=== PATIENT | female | born 1955 | race Two or more races ===

== ENCOUNTER 2023-12-10 02:28 | Observation (INO) | payer MEDICARE, BC ==
[~2023-12-10] VITALS: Ht 160 cm; Wt 77.3 kg
[2023-12-10] VITALS (14 sets, daily range): BP systolic 110–143; BP diastolic 50–70; PULSE 74–107; RESP 18–20; TEMP 97; O2SAT 97
[2023-12-10 03:15] LABS: BASOPHILS # (AUTO) 0.1 X10'3 (0-0.2); BASOPHILS % (AUTO) 0.6 % (0-1); EOSINOPHILS # (AUTO) 0.2 X10'3 (0-0.9); EOSINOPHILS % (AUTO) 1.6 % (0-6); HEMATOCRIT 42.3 % (35.0-45.0); LYMPHOCYTES # (AUTO) 2.8 X10'3 (1.1-4.8); LYMPHOCYTES % (AUTO) 29.8 % (21-51); MEAN CORPUSCULAR HEMOGLOBIN 30.7 PG (27.0-31.0); MEAN CORPUSCULAR VOLUME 92.9 FL (78-98); MONOCYTES # (AUTO) 0.5 X10'3 (0-0.9); PLATELET COUNT 200 X10'3 (140-440); RED BLOOD COUNT 4.56 X10'6 (4.20-5.60); RED CELL DISTRIBUTION WIDTH 13.9 % (11.5-14.5); WHITE BLOOD COUNT 9.6 X10'3 (4.5-11.0)
[2023-12-10 03:34] LABS: ALBUMIN 3.6 G/DL (3.4-5.0); ANION GAP 6 (8-16); BLOOD UREA NITROGEN 21 MG/DL (7-18); BUN/CREATININE RATIO 18.9 (10.0-20.0); CALCIUM 9.4 MG/DL (8.5-10.1); CHLORIDE 101 MMOL/L (99-107); CREATININE 1.11 MG/DL (0.40-0.90); GLUCOSE 125 MG/DL (70-104); POTASSIUM 3.7 MMOL/L (3.5-5.1); PRO BRAIN NATRIURETIC PEPTIDE < 30 PG/ML (0-125); SODIUM 135 MMOL/L (135-145); TOTAL CARBON DIOXIDE 27.8 MMOL/L (24-32); eCRCL 41 ML/MIN; eGFR 49 ML/MIN
[2023-12-10] MEDS: aspirin 325mg tablet PO ONE (03:56)
[2023-12-10] MEDS ORDERED: nitroGLYCERIN 0.4mg SUBLingual tab SL PRN (06:30)
[2023-12-10] MEDS ORDERED: magnesium sulf-water 2g/50mL 50 ML IV PRN (06:30)
[2023-12-10] MEDS ORDERED: magnesium Cl slow-release 64mg tablet PO PRN (06:30)
[2023-12-10] MEDS ORDERED: magnesium sulf-water 4G/100mL 100 ML IV PRN (06:30)
[2023-12-10] MEDS ORDERED: potassium Cl 40MEQ/1/2NS 520ml 520 ML IV PRN (06:30)
[2023-12-10] MEDS ORDERED: morphine 2 MG/ML inj. syringe IV PRN (06:30)
[2023-12-10] MEDS ORDERED: metoprolol tartrate 1mg/ml inj IV PRN (06:30)
[2023-12-10] MEDS ORDERED: ondansetron/PF 4mg/2ml inj IV PRN (06:30)
[2023-12-10] MEDS ORDERED: potassium Cl 20 mEq SR tablet PO PRN ×2 (06:30)
[2023-12-10] MEDS ORDERED: mag hydrox/Alum hydrox/simeth 30ml oral suspension PO PRN (06:30)
[2023-12-10] MEDS ORDERED: acetaminophen 325mg tablet PO PRN (06:30)
[2023-12-10] MEDS ORDERED: magnesium hydroxide 30ml (MOM) UD suspension PO PRN (06:30)
[2023-12-10] MEDS ORDERED: aminophylline 250mg/10ml inj. IV PRN (06:30)
[2023-12-10] MEDS ORDERED: ROW500R RC (06:52)
[2023-12-10] MEDS ORDERED: POLY119P2 PO (06:52)
[2023-12-10] MEDS ORDERED: BUDE10.2 IH (06:52)
[2023-12-10] MEDS ORDERED: HYDR12.55 PO (06:52)
[2023-12-10] MEDS ORDERED: EZET10TA48 PO (06:52)
[2023-12-10] MEDS ORDERED: FAMO20TA8 PO (06:52)
[2023-12-10] MEDS ORDERED: MULT-1085 PO (06:52)
[2023-12-10] MEDS ORDERED: OLME40TA18 PO (06:52)
[2023-12-10] MEDS ORDERED: TIRZ2.5P SQ (06:52)
[2023-12-10 07:32] LABS: CHOL/HDL RATIO 3.5 (0.00-4.99); CHOLESTEROL 181 MG/DL (0-200); HDL CHOLESTEROL 51 MG/DL (35-60); LDL CHOLESTEROL 94 MG/DL (50-100); THYROID STIMULATING HORMONE 1.35 ulU/ml (0.34-4.50); TRIGLYCERIDES 187 MG/DL (20-135)
[2023-12-10] MEDS: heparin, porcine 5000 units/ml vial SQ SCH (07:56)
[2023-12-10] MEDS: K and/or MAG REPLACEMENT MC SCH (08:00)
[2023-12-10] MEDS: normal saline 1000ml 1,000 ML IV SCH (08:11)
[2023-12-10] MEDS: regadenoson 0.4mg/5ml syringe IV PRN (09:28)
[2023-12-10 10:17] LABS: HEMOGLOBIN A1C 6.4 % (4.5-6.2)
[2023-12-10] MEDS ORDERED: NITR0.4T51 SL (14:37)
== END 2023-12-10 15:45 | disposition home or self-care (01) ==
LOC: ER 02:29 → ED HOLD 06:33 → PCU 3S 10:55
PROVIDERS: ADMIT Internal Medicine Sleep Medicine; ATTEND Family Medicine
DX: R07.9 Chest pain, unspecified (principal); K51.90 Ulcerative colitis, unspecified, without complications; I10 Essential (primary) hypertension; E78.5 Hyperlipidemia, unspecified; J43.9 Emphysema, unspecified; E11.9 Type 2 diabetes mellitus without complications; G47.33 Obstructive sleep apnea (adult) (pediatric); F17.210 Nicotine dependence, cigarettes, uncomplicated; F12.90 Cannabis use, unspecified, uncomplicated; Z91.040 Latex allergy status; Z79.899 Other long term (current) drug therapy
CPT/HCPCS: 36415; 71045; 78452; 80048; 80061; 83036; 83880; 84443; 84484; 85025; 87081; 93005; 93017; 93306; 96360; 96361; 96372; 99285; A9500; G0378; J1644; J2785; J7030

== ENCOUNTER 2023-12-16 09:56 | Outpatient (CLI) | payer MEDICARE, BC ==
[~2023-12-16 09:56] MED LIST: BUDE10.2 IH; EZET10TA48 PO; FAMO20TA8 PO; HYDR12.55 PO; MULT-1085 PO; NITR0.4T51 SL; OLME40TA18 PO; POLY119P2 PO; ROW500R RC; TIRZ2.5P SQ
== END 2023-12-16 23:59 | disposition home or self-care (01) ==
LOC: RAD 09:56
PROVIDERS: ATTEND Surgery
DX: K21.9 Gastro-esophageal reflux disease without esophagitis (principal)
CPT/HCPCS: 74220

== ENCOUNTER 2024-04-13 05:25 | Inpatient (IN) | payer MEDICARE, BC ==
[2024-04-10 14:24] LABS: BASOPHILS # (AUTO) 0.1 X10'3 (0-0.2); BASOPHILS % (AUTO) 0.9 % (0-1); EOSINOPHILS # (AUTO) 0.3 X10'3 (0-0.9); EOSINOPHILS % (AUTO) 2.8 % (0-6); HEMATOCRIT 40.9 % (35.0-45.0); HEMOGLOBIN 13.6 g/dl (12.0-16.0); LYMPHOCYTES # (AUTO) 2.3 X10'3 (1.1-4.8); LYMPHOCYTES % (AUTO) 25.4 % (21-51); MEAN CORPUSCULAR HEMOGLOBIN 30.8 PG (27.0-31.0); MEAN CORPUSCULAR HGB CONC 33.3 g/dL (33.0-36.5); MEAN CORPUSCULAR VOLUME 92.5 FL (78-98); MEAN PLATELET VOLUME 7.3 FL (7.4-10.4); MONOCYTES # (AUTO) 0.6 X10'3 (0-0.9); MONOCYTES % (AUTO) 6.5 % (2-12); NEUTROPHILS # (AUTO) 5.9 X10'3 (1.8-7.7); NEUTROPHILS % (AUTO) 64.4 % (42-75); PLATELET COUNT 218 X10'3 (140-440); RED BLOOD COUNT 4.42 X10'6 (4.20-5.60); RED CELL DISTRIBUTION WIDTH 13.2 % (11.5-14.5); WHITE BLOOD COUNT 9.2 X10'3 (4.5-11.0)
[2024-04-10 15:18] LABS: ALANINE AMINOTRANSFERASE 31 U/L (12-78); ALBUMIN 3.4 G/DL (3.4-5.0); ALKALINE PHOSPHATASE 107 IU/L (46-116); ANION GAP 8 (8-16); ASPARTATE AMINO TRANSFERASE 18 U/L (10-37); BILIRUBIN,TOTAL 0.4 MG/DL (0.1-1.0); BLOOD UREA NITROGEN 16 MG/DL (7-18); BUN/CREATININE RATIO 16.3 (10.0-20.0); CALCIUM 8.6 MG/DL (8.5-10.1); CHLORIDE 105 MMOL/L (99-107); CREATININE 0.98 MG/DL (0.40-0.90); GLUCOSE 135 MG/DL (70-104); POTASSIUM 3.9 MMOL/L (3.5-5.1); SODIUM 141 MMOL/L (135-145); TOTAL CARBON DIOXIDE 27.9 MMOL/L (24-32); TOTAL PROTEIN 6.8 G/DL (6.4-8.2); eGFR 57 ML/MIN
[~2024-04-13] VITALS: Ht 160 cm; Wt 78.0 kg
[2024-04-13] VITALS (24 sets, daily range): BP systolic 113–151; BP diastolic 55–88; PULSE 70–96; RESP 13–25; TEMP 97.2–98.7; O2SAT 90–99
[~2024-04-13 05:25] MED LIST changes: +GLUCOSAMINE; +LANS30CA56 PO; +MAGNESIUM; -NITR0.4T51 SL; +PREVCR VG
[2024-04-13] MEDS: ringers solution, lacted 1,000 ML IV SCH ×2 (05:30→09:15)
[2024-04-13] MEDS: famotidine 20mg tablet PO ONE (05:30)
[2024-04-13] MEDS: ceFAZolin 2gm in dextrose, iso 50 ML IV ONE (05:49)
[2024-04-13] MEDS ORDERED: LIDOcaine 1% 30ml preserv. free vial ONE (06:47)
[2024-04-13] MEDS ORDERED: BUPIVAcaine 2.5mg/ml inj 50ml vial (contains preservative) ONE (06:47)
[2024-04-13] MEDS ORDERED: sevoflurane 250ml liquid IH ONE (07:22)
[2024-04-13] MEDS ORDERED: fentaNYL /PF 50mcg/ml 5ml ampule ONE (07:33)
[2024-04-13] MEDS ORDERED: midazolam 1 mg/ML 2ml injection ONE (07:33)
[2024-04-13] MEDS ORDERED: LIDOcaine 2% (20mg/ml) 5ml vial ONE (07:46)
[2024-04-13] MEDS ORDERED: propofol inj 20 ML IV ONE (07:46)
[2024-04-13] MEDS ORDERED: rocuronium 10mg/ml inj IV ONE (07:47)
[2024-04-13] MEDS: BUPIVAcaine 2.5mg/ml inj 50ml vial (contains preservative) SQ ONE (08:04)
[2024-04-13] MEDS ORDERED: labetalol 20mg/4ml (5mg/ml) syringe IV PRN (09:15)
[2024-04-13] MEDS ORDERED: proCHLORperazine 10 MG/2 ml inj IV PRN (09:15)
[2024-04-13] MEDS ORDERED: morphine 4 MG/ML inj SYRINge IV PRN (09:15)
[2024-04-13] MEDS ORDERED: enalaprilat dihydrate 2.5mg/2ml vial IV PRN (09:15)
[2024-04-13] MEDS ORDERED: ondansetron/PF 4mg/2ml inj IV PRN (09:15)
[2024-04-13] MEDS ORDERED: meperidine/PF 25mg/ml syringe IV PRN ×3 (09:15)
[2024-04-13] MEDS ORDERED: morphine 2 MG/ML inj. syringe IV PRN (09:15)
[2024-04-13] MEDS ORDERED: meperidine/PF 25mg/ml syringe ONE (09:59)
[2024-04-13] MEDS ORDERED: acetaminophen 1,000mg/100ml IV 100 ML IV ONE (10:02)
[2024-04-13] MEDS ORDERED: neostigmine methylsulfate 1 MG/ML 10ml vial ONE (10:09)
[2024-04-13] MEDS ORDERED: glycopyrrolate 0.2mg/ml inj ONE (10:09)
[2024-04-13] MEDS ORDERED: sugammadex 200mg/2ml injection IV ONE (10:25)
[2024-04-13] MEDS: PCA WASTE DOCUMENTATION 1 MG ML MC SCH (10:34)
[2024-04-13] MEDS: potassium CL 20mEq in D5-1/2NS 1,000 ML IV SCH (10:35)
[2024-04-13] MEDS: HYDROmorph/NS 0.2 mg/ml PCA 100 ML IV SCH (11:00)
[2024-04-13] MEDS: heparin, porcine 5000 units/ml vial SQ SCH (19:36)
[2024-04-13] MEDS: ondansetron/PF 4mg/2ml inj IV PRN (19:54)
[2024-04-14] VITALS (11 sets, daily range): BP systolic 107–131; BP diastolic 42–60; PULSE 60–83; RESP 15–18; TEMP 97.3–98.6; O2SAT 92–98
[2024-04-14] MEDS: normal saline 1000ml 1,000 ML IV SCH (02:05)
[2024-04-14] MEDS: proCHLORperazine 10 MG/2 ml inj IV PRN (09:57)
[2024-04-14] MEDS: oxyCODONE/APAP 5-325mg tablet PO PRN (12:07)
[2024-04-14] MEDS: albuterol 2.5 MG/3 ML nebule NEB SCH (15:44)
[2024-04-15 07:27] VITALS: BP 123/60; PULSE 79; RESP 18; TEMP 98.2; O2SAT 92
[2024-04-15] MEDS ORDERED: PER5325T PO (08:16)
[2024-04-15 08:47] VITALS: RESP 16
== END 2024-04-15 10:46 | disposition home or self-care (01) | DRG 328 ==
LOC: PAS 05:25 → SUR 3N 16:30
PROVIDERS: ADMIT Surgery; ATTEND Surgery
PROC: 8E0W4CZ Robotic Assisted Procedure of Trunk Region, Percutaneous Endoscopic Approach (ICD-10-PCS; 2024-04-13)
PROC: 0BUT4JZ Supplement Diaphragm with Synthetic Substitute, Percutaneous Endoscopic Approach (ICD-10-PCS; principal; 2024-04-13 07:22)
DX: K44.9 Diaphragmatic hernia without obstruction or gangrene (principal); K21.9 Gastro-esophageal reflux disease without esophagitis; E73.9 Lactose intolerance, unspecified; I10 Essential (primary) hypertension; E11.9 Type 2 diabetes mellitus without complications; Z79.899 Other long term (current) drug therapy; Z79.51 Long term (current) use of inhaled steroids
CPT/HCPCS: 36415; 71045; 80053; 82948; 85025; 87081; 94640; 94760; A4615; A4618; C1781; G0378; J0131; J0690; J0780; J1100; J1171; J1644; J2003; J2175; J2250; J2405; J2704; J2710; J3010; J3480; J3490; J7030; J7120